=== PATIENT | female | born 1975 | race Caucasian/White ===

== ENCOUNTER 2016-10-12 09:40 | Observation (INO) | payer OTHER ==
[~2016-10-12] VITALS: Ht 147.3 cm; Wt 100.3 kg
[~2016-10-12 09:40] MED LIST: BUDE10.2 IH
[2016-10-12] MEDS ORDERED: ADENOSINE 6 MG/2 ML VIAL IV ONE ×3 (09:47→10:15)
--- NOTE | 2016-10-12 10:06 | PHYS DOC ---
Past Medical History Past Medical History: Asthma, Other Additional Past Medical Histor: SVT; cerebral palsy Past Surgical History: , Tubal ligation, Other Additional Past Surgical Histo: left leg lengthened Alcohol Use: None Drug Use: None Adult General Chief Complaint Chief Complaint: RAPID HEART RATE HPI HPI Patient is a 41 year old female who presents with cardia. She states she has a history of SVT and was diagnosed approximately 2 years ago and this morning around 8 AM felt herself go into it. She states normally she bears down and is able to control her this morning is not working. She denies any chest pain or shortness of breath she does feel light headed. She denies any current medications for SVT. She does follow with the wood pile driver operator at [facility] for this. She denies any drug use or alcohol abuse. Review of Systems Review of Systems Constitutional: Denies fever or chills, positive for lightheadedness Eyes: Denies change in visual acuity, redness, or eye pain [] HENT: Denies nasal congestion or sore throat [] Respiratory: Denies cough or shortness of breath [] Cardiovascular: No additional information not addressed in HPI [] GI: Denies abdominal pain, nausea, vomiting, bloody stools or diarrhea [] : Denies dysuria or hematuria [] Musculoskeletal: Denies back pain or joint pain [] Integument: Denies rash or skin lesions [] Neurologic: Denies headache, focal weakness or sensory changes [] Endocrine: Denies polyuria or polydipsia [] Current Medications Current Medications Current Medications Medications (Trade) Dose Ordered [facility] Start Time Stop Time Status Last Admin Dose Admin Adenosine (Adenocard) 6 mg 1X ONCE 10/12/16 10:15 10/12/16 10:16 DC 10/12/16 09:54 6 MG Adenosine 12 mg 12 mg 1X ONCE 10/12/16 10:15 10/12/16 10:16 DC 10/12/16 09:58 12 MG Metoprolol Succinate (Toprol Xl) 12.5 mg DAILY 10/13/16 09:00 UNV Sodium Chloride (Iv Sodium Chloride 0.9% 1000ml Bag) 1,000 ml @ 1,000 mls/hr Q1H 10/12/16 10:15 10/12/16 11:14 DC 10/12/16 10:28 1,000 MLS/HR Allergies Allergies Allergies Coded Allergies Type Severity Reaction Last Updated Verified No Known Drug Allergies 10/12/16 No Physical Exam Physical Exam Constitutional: Well developed, well nourished, no acute distress, non-toxic appearance. [] HENT: Normocephalic, atraumatic, bilateral external ears normal, oropharynx moist, no oral exudates, nose normal. [] Eyes: PERRLA, EOMI, conjunctiva normal, no discharge. [] Neck: Normal range of motion, no tenderness, supple, no stridor. [] Cardiovascular:Heart rate tachycardic, no murmur [] Lungs & Thorax: Bilateral breath sounds clear to auscultation [] Abdomen: Bowel sounds normal, soft, no tenderness, no masses, no pulsatile masses. [] Skin: Warm, dry, no erythema, no rash. [] Back: No tenderness, no CVA tenderness. [] Extremities: No tenderness, no cyanosis, no clubbing, ROM intact, no edema. [] Neurologic: Alert and oriented X 3, normal motor function, normal sensory function, no focal deficits noted. [] Psychologic: Affect normal, judgement normal, mood normal. [] Current Patient Data Vital Signs Vital Signs Date Time Temp Pulse Resp B/P Pulse Ox O2 Delivery O2 Flow Rate FiO2 10/12/16 12:35 82 19 133/91 96 Room Air 10/12/16 09:42 98.0 98.0 Lab Values Laboratory Tests Test 10/12/16 09:50 10/12/16 11:25 White Blood Count 10.3x10^3/uL (4.0-11.0) Red Blood Count 5.07x10^6/uL (3.50-5.40) Hemoglobin 14.3g/dL (12.0-15.5) Hematocrit 43.6% (36.0-47.0) Mean Corpuscular Volume 86fL (79-100) Mean Corpuscular Hemoglobin 28pg (25-35) Mean Corpuscular Hemoglobin Concent 33g/dL (31-37) Red Cell Distribution Width 15.0% (11.5-14.5) H Platelet Count 402x10^3/uL (140-400) H Neutrophils (%) (Auto) 69% (31-73) Lymphocytes (%) (Auto) 21% (24-48) L Monocytes (%) (Auto) 6% (0-9) Eosinophils (%) (Auto) 3% (0-3) Basophils (%) (Auto) 1% (0-3) Neutrophils # (Auto) 7.1x10^3uL (1.8-7.7) Lymphocytes # (Auto) 2.2x10^3/uL (1.0-4.8) Monocytes # (Auto) 0.7x10^3/uL (0.0-1.1) Eosinophils # (Auto) 0.4x10^3/uL (0.0-0.7) Basophils # (Auto) 0.1x10^3/uL (0.0-0.2) Sodium Level 140mmol/L (136-145) Potassium Level 3.8mmol/L (3.5-5.1) Chloride Level 104mmol/L (98-107) Carbon Dioxide Level 24mmol/L (21-32) Anion Gap 12 (6-14) Blood Urea Nitrogen 15mg/dL (7-20) Creatinine 1.1mg/dL (0.6-1.0) H Estimated GFR (Cockcroft-Gault) 55.3 Glucose Level 100mg/dL (70-99) H Calcium Level 8.7mg/dL (8.5-10.1) Magnesium Level 2.0mg/dL (1.8-2.4) Total Bilirubin 0.3mg/dL (0.2-1.0) Direct Bilirubin 0.1mg/dL (0.0-0.2) Aspartate Amino Transferase (AST) 20U/L (15-37) Alanine Aminotransferase (ALT) 25U/L (14-59) Alkaline Phosphatase 81U/L (46-116) Creatine Kinase 143U/L (26-192) Creatine Kinase MB (Mass) 2.3ng/mL (0.0-3.6) Creatine Kinase MB Relative Index 1.6% (0-4) Troponin I Quantitative < 0.017ng/mL (0.000-0.055) ZK-Fre-V-Type Natriuretic Peptide 172pg/mL (0-124) H Total Protein 8.1g/dL (6.4-8.2) Albumin 3.6g/dL (3.4-5.0) Thyroid Stimulating Hormone (TSH) 2.208uIU/mL (0.358-3.74) Urine Collection Type Unknown Urine Color Yellow Urine Clarity Clear Urine pH 7.5 Urine Specific [place] 1.010 Urine Protein Negativemg/dL (NEG-TRACE) Urine Glucose (UA) Negativemg/dL (NEG) Urine Ketones (Stick) Negativemg/dL (NEG) Urine Blood Trace (NEG) Urine Nitrite Negative (NEG) Urine Bilirubin Negative (NEG) Urine Urobilinogen Dipstick 0.2mg/dL (0.2 mg/dL) Urine Leukocyte Esterase Negative (NEG) Urine RBC Rare/HPF (0-2) Urine WBC 0/HPF (0-4) Urine Squamous Epithelial Cells Mod/LPF Urine Bacteria 0/HPF (0-FEW) Urine Hyaline Casts Occasional/HPF Urine Mucus Mod/LPF Urine Test Negative (NEG) Urine Opiates Screen Neg (NEG) Urine Methadone Screen Neg (NEG) Urine Barbiturates Neg (NEG) Urine Phencyclidine Screen Neg (NEG) Urine Amphetamine/Methamphetamine Neg (NEG) Urine Benzodiazepines Screen Neg (NEG) Urine Cocaine Screen Neg (NEG) Urine Cannabinoids Screen Neg (NEG) Urine Ethyl Alcohol Neg (NEG) Laboratory Tests 10/12/16 09:50 Laboratory Tests 10/12/16 09:50 EKG EKG Initial EKG shows heart rate of 22 bpm NSVT, ST depressions throughout the precordial leads, normal axis, Q RS 62 ms, as interpreted by me. Repeat EKG after adenosine shows sinus at 87 bpm normal axis, QRS 64 ms, with T- wave inversions noted in leads 3, no ST elevations noted, as interpreted by me. Radiology/Procedures Radiology/Procedures [facility] [address] [place] [address] IMAGING REPORT Signed PATIENT: DIEGO JUAREZ ACCOUNT: [id number] : 1975 LOCATION: ER AGE: 41 SEX: F EXAM STATUS: PRE ER ORD. PHYSICIAN: AGNES BENAVIDEZ MD REASON: chest pain PROCEDURE: PORTABLE CHEST 1V Portable chest, 10/12/2016: History: Chest pain Comparison is made to a study from 03/24/2016. The heart size and pulmonary vascularity are normal. There is minimal linear atelectasis and/or scarring in the lower chest bilaterally. No pulmonary consolidation is seen. There is no evidence of pleural fluid. IMPRESSION: Minimal linear atelectasis and/or scarring. DICTATED and SIGNED BY: CLAUDETTE GARCIA MD DATE: 10/12/16 1022 CC: AGNES BENAVIDEZ MD; MERCEDES ESCOBEDO MD ~ Impressions: SVT Course & Med Decision Making Course & Med Decision Making Pertinent Labs and Imaging studies reviewed. (See chart for details) Patient presented with an SVT. She received 6 mg adenosine and then converted on the next 12 mg. Roving Marker consult and they recommended admission to the patient's been having these occurring weekly. Patient's in stable condition at this time and agreeable to the plan. 35 minutes of critical care time was used on this patient excluding procedures. Dragon Disclaimer Dragon Disclaimer This electronic medical record was generated, in whole or in part, using a voice recognition dictation system. Departure Departure Impression: Primary Impression: SVT (supraventricular tachycardia) Disposition: ADMITTED INPATIENT Admitting Physician: Mercedes Escobedo Condition: STABLE Referrals: MERCEDES ESCOBEDO MD (PCP) AGNES BENAVIDEZ MD Oct 12, 2016 10:06
[2016-10-12 10:10] LABS: BASO # 0.1 x10^3/uL (0.0-0.2); BASO % 1 % (0-3); EOS % 3 % (0-3); HEMATOCRIT 43.6 % (36.0-47.0); HEMOGLOBIN 14.3 g/dL (12.0-15.5); LYMPH # 2.2 x10^3/uL (1.0-4.8); LYMPH % 21 % (24-48); MEAN CORPUSCULAR HEMOGLOBIN 28 pg (25-35); MEAN CORPUSCULAR HGB CONC 33 g/dL (31-37); MEAN CORPUSCULAR VOLUME 86 fL (79-100); MONO % 6 % (0-9); NEUT % 69 % (31-73); PLATELET COUNT 402 x10^3/uL (140-400); RED BLOOD COUNT 5.07 x10^6/uL (3.50-5.40); WHITE BLOOD COUNT 10.3 x10^3/uL (4.0-11.0)
[2016-10-12] MEDS ORDERED: IV NORMAL SALINE 1000ML BAG 1,000 ML IV SCH (10:15)
[2016-10-12 10:26] LABS: CALCIUM 8.7 mg/dL (8.5-10.1); CREATININE 1.1 mg/dL (0.6-1.0); GFR 55.3; POTASSIUM 3.8 mmol/L (3.5-5.1)
--- NOTE | 2016-10-12 10:26 | RAD ---
Portable chest, 10/12/2016: History: Chest pain Comparison is made to a study from 03/24/2016. The heart size and pulmonary vascularity are normal. There is minimal linear atelectasis and/or scarring in the lower chest bilaterally. No pulmonary consolidation is seen. There is no evidence of pleural fluid. IMPRESSION: Minimal linear atelectasis and/or scarring.
[2016-10-12 10:32] LABS: ALBUMIN 3.6 g/dL (3.4-5.0); DIRECT BILIRUBIN 0.1 mg/dL (0.0-0.2); TOTAL BILIRUBIN 0.3 mg/dL (0.2-1.0); TOTAL PROTEIN 8.1 g/dL (6.4-8.2)
[2016-10-12 10:41] LABS: CKMB INDEX 1.6 % (0-4); CKMB MASS 2.3 ng/mL (0.0-3.6)
[2016-10-12 11:39] LABS: BILIRUBIN,URINE NEGATIVE (NEG); GLUCOSE,URINE NEGATIVE (NEG); NITRITE,URINE NEGATIVE (NEG); PH,URINE 7.5; PROTEIN,URINE NEGATIVE (NEG-TRACE); UROBILINOGEN,URINE 0.2 mg/dL (0.2 mg/dL)
[2016-10-12 11:40] LABS: BARBITURATES NEG (NEG); BENZODIAZEPINES NEG (NEG); CANNABINOIDS NEG (NEG); COCAINE NEG (NEG); METHADONE NEG (NEG); OPIATES NEG (NEG); PHENCYCLIDINE NEG (NEG)
[2016-10-12 11:41] LABS: ETHANOL, URINE NEG (NEG)
[2016-10-12 11:42] LABS: NEG OBC UR NEG; POS OBC UR POS
[2016-10-12 11:50] LABS: BACTERIA,URINE 0 /HPF (0-FEW); RBC,URINE RARE /HPF (0-2); SQUAMOUS EPITHELIAL CELL,UR MOD /LPF; WBC,URINE 0 /HPF (0-4)
--- NOTE | 2016-10-12 12:17 | PDOC2 ---
CARDIAC CONSULT DATE OF CONSULT Date of Consult DATE: 10/12/16 TIME: 12:15 REASON FOR CONSULT Reason for Consult: SVT REFERRING PHYSICIAN Referring Physician: Carrol SOURCE Source: Chart review, Patient HISTORY OF PRESENT ILLNESS HISTORY OF PRESENT ILLNESS This is a pleasant 41 yo female admitted for complains of palpitations and heart racing and diaphoresis and dizziness. This has been happening to her weekly averaging about 10 minutes with only symptom of palpitation eventually aborted by hyperventilating and bearing down. Today at work she had multiple complains as enumerated but this was prolonged further about 30 minutes and not responsive with vagal maneuvers. She then started having left hand tingling which prompted her to proceed to ED. Denies any recent fever or chills and her asthma and anxiety are fairly controlled. Reports that she was noted initially with SVT about 2 yrs ago and was seen in . At that time she also had an event monitor. There was no mention of any ablation. She was given flecainide in the past. She currently does not take any medications except for her asthma inhalers and ranitidine. Reports that she typically drinks fluids about 0.5 to 1 liter per day with daily ingestion of 1 can of red thunder equivalent to red bull and also diet Dr. Rodríguez. Denies any tobacco but she does live with her who smokes tobacco. Denies any CAD, VTE, syncope. 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 ) Pulmonary: Asthma CENTRAL NERVOUS SYSTEM: Other (Cerebral palsy) GI: GERD Heme/Onc: No pertinent hx Hepatobiliary: No pertinent hx Psych: Anxiety Musculoskeletal: Other (Cerebral palsy; obesity) Infectious disease: No pertinent hx ENT: No pertinent hx Renal/: No pertinent hx Endocrine: Diabetes (gestational) Dermatology: No pertinent hx PAST SURGICAL HISTORY Past Surgical History: Other (achilles tendon lengthening; heart surgery as a child) FAMILY HISTORY Family History: Stroke (father), Other (nonhodkins lymphoma- father) SOCIAL HISTORY Smoke: No ALCOHOL: occassional Drugs: None Lives: with Family CURRENT MEDICATIONS CURRENT MEDICATIONS Current Medications Medications (Trade) Dose Ordered Sig/Joanne Route PRN Reason Start Time Stop Time Status Last Admin Dose Admin Adenosine 12 mg 12 mg 1X ONCE IV 10/12/16 10:15 10/12/16 10:16 DC 10/12/16 09:58 Sodium Chloride (Iv Sodium Chloride 0.9% 1000ml Bag) 1,000 ml @ 1,000 mls/hr Q1H IV 10/12/16 10:15 10/12/16 11:14 DC 10/12/16 10:28 Adenosine (Adenocard) 6 mg 1X ONCE IV 10/12/16 10:15 10/12/16 10:16 DC 10/12/16 09:54 ALLERGIES ALLERGIES: Coded Allergies: No Known Drug Allergies (Unverified , 10/12/16) ROS Review of System 14 point ROS evaluated with pertinent positives noted per HPI PHYSICAL EXAM General: Alert, Oriented X3, Cooperative, No acute distress HEENT: Atraumatic, Mucous membr. moist/pink Lungs: Clear to auscultation, Other (faint bibasilar exp wheeze. ) Heart: Regular rate, Normal S1, Normal S2, No murmurs Abdomen: Soft, No tenderness Extremities: No cyanosis, No edema Skin: No breakdown, No significant lesion Neuro: Normal speech, Sensation intact Psych/Mental Status: Mental status NL, Mood NL MUSCULOSKELETAL: Osteoarthritic changes both hands VITALS VITALS Vital Signs Date Time Temp Pulse Resp B/P Pulse Ox O2 Delivery O2 Flow Rate FiO2 10/12/16 09:42 98.0 225 14 110/77 95 Room Air 98.0 LABS Lab: Laboratory Tests Test 10/12/16 09:50 10/12/16 11:25 White Blood Count 10.3x10^3/uL (4.0-11.0) Red Blood Count 5.07x10^6/uL (3.50-5.40) Hemoglobin 14.3g/dL (12.0-15.5) Hematocrit 43.6% (36.0-47.0) Mean Corpuscular Volume 86fL (79-100) Mean Corpuscular Hemoglobin 28pg (25-35) Mean Corpuscular Hemoglobin Concent 33g/dL (31-37) Red Cell Distribution Width 15.0% (11.5-14.5) Platelet Count 402x10^3/uL (140-400) Neutrophils (%) (Auto) 69% (31-73) Lymphocytes (%) (Auto) 21% (24-48) Monocytes (%) (Auto) 6% (0-9) Eosinophils (%) (Auto) 3% (0-3) Basophils (%) (Auto) 1% (0-3) Neutrophils # (Auto) 7.1x10^3uL (1.8-7.7) Lymphocytes # (Auto) 2.2x10^3/uL (1.0-4.8) Monocytes # (Auto) 0.7x10^3/uL (0.0-1.1) Eosinophils # (Auto) 0.4x10^3/uL (0.0-0.7) Basophils # (Auto) 0.1x10^3/uL (0.0-0.2) Sodium Level 140mmol/L (136-145) Potassium Level 3.8mmol/L (3.5-5.1) Chloride Level 104mmol/L (98-107) Carbon Dioxide Level 24mmol/L (21-32) Anion Gap 12 (6-14) Blood Urea Nitrogen 15mg/dL (7-20) Creatinine 1.1mg/dL (0.6-1.0) Estimated GFR (Cockcroft-Gault) 55.3 Glucose Level 100mg/dL (70-99) Calcium Level 8.7mg/dL (8.5-10.1) Magnesium Level 2.0mg/dL (1.8-2.4) Total Bilirubin 0.3mg/dL (0.2-1.0) Direct Bilirubin 0.1mg/dL (0.0-0.2) Aspartate Amino Transf (AST/SGOT) 20U/L (15-37) Alanine Aminotransferase (ALT/SGPT) 25U/L (14-59) Alkaline Phosphatase 81U/L (46-116) Creatine Kinase 143U/L (26-192) Creatine Kinase MB (Mass) 2.3ng/mL (0.0-3.6) Creatine Kinase MB Relative Index 1.6% (0-4) Troponin I Quantitative < 0.017ng/mL (0.000-0.055) ZC-Pcm-X-Type Natriuretic Peptide 172pg/mL (0-124) Total Protein 8.1g/dL (6.4-8.2) Albumin 3.6g/dL (3.4-5.0) Thyroid Stimulating Hormone (TSH) 2.208uIU/mL (0.358-3.74) Urine Collection Type Unknown Urine Color Yellow Urine Clarity Clear Urine pH 7.5 Urine Specific [place] 1.010 Urine Protein Negativemg/dL (NEG-TRACE) Urine Glucose (UA) Negativemg/dL (NEG) Urine Ketones (Stick) Negativemg/dL (NEG) Urine Blood Trace (NEG) Urine Nitrite Negative (NEG) Urine Bilirubin Negative (NEG) Urine Urobilinogen Dipstick 0.2mg/dL (0.2 mg/dL) Urine Leukocyte Esterase Negative (NEG) Urine RBC Rare/HPF (0-2) Urine WBC 0/HPF (0-4) Urine Squamous Epithelial Cells Mod/LPF Urine Bacteria 0/HPF (0-FEW) Urine Hyaline Casts Occasional/HPF Urine Mucus Mod/LPF Urine Test Negative (NEG) Urine Opiates Screen Neg (NEG) Urine Methadone Screen Neg (NEG) Urine Barbiturates Neg (NEG) Urine Phencyclidine Screen Neg (NEG) Urine Amphetamine/Methamphetamine Neg (NEG) Urine Benzodiazepines Screen Neg (NEG) Urine Cocaine Screen Neg (NEG) Urine Cannabinoids Screen Neg (NEG) Urine Ethyl Alcohol Neg (NEG) ASSESSMENT/PLAN ASSESSMENT/PLAN 1. PSVT: Failed vagal maneuvers at home. Corrected by 2nd adenosine in ED. 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 Likely induced by inadequate po hydration with daily use of red thunder (red bull generic) with diet Dr. Rodríguez with concurrent effexor use as well. Discussed significantly with pt in regards to stopping caffeinated beverage use and adequately hydrating self. Will start on low dose toprol XL and will consider referring to EP. Obtain baseline EKG. TTE today and further recommendation per result. Will establish outpt follow up once testing is completed. 2. Hx of asthma: well controlled. on dulera and proair. 3. 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 Hx of cerebral palsy 5. Hx of anxiety: Verbalized control. takes effexor for it. Problems: NIKO STARKS APRN Oct 12, 2016 12:17
--- NOTE | 2016-10-12 13:44 | EKG ---
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
--- NOTE | 2016-10-12 13:45 | EKG ---
[facility] [address] [place] [address] Test Date: 2016-10-12 Test Time: 09:59:51 Pat Name: DIEGO JUAREZ Department: Room: Gender: F Developer Advocate: : 1975 Requested By: NIKO STARKS Order Number: [id number] Reading MD: Darius Rosenbaum Measurements Intervals [place] Rate: 87 P: 37 CT: 124 QRS: 36 QRSD: 64 T: 8 QT: 344 QTc: 414 Interpretive Statements SINUS ARRHYTHMIA Electronically Signed On 10-13-2016 13:09:53 PATHOLOGY SECRETARY by Darius Rosenbaum
--- NOTE | 2016-10-12 14:18 | CARD ---
APPROVED REPORT EXAM: Two-dimensional and M-mode echocardiogram with Doppler and color Doppler. Other Information Quality : GoodHR: 86bpm Rhythm : NSR INDICATION Arrhythmia SVT 2D DIMENSIONS RVDd2.5 (2.9-3.5cm)Left Atrium(2D)2.9 (1.6-4.0cm) IVSd0.9 (0.7-1.1cm)Aortic Root(2D)2.9 (2.0-3.7cm) LVDd4.5 (3.9-5.9cm)LVOT Diameter2.1 (1.8-2.4cm) PWd1.0 (0.7-1.1cm)LVDs3.1 (2.5-4.0cm) FS (%) 31.2 %SV55.2 ml LVEF(%)59.1 (>50%) Aortic Valve AoV Peak Lee.109.8cm/sAoV VTI22.1cm AO Peak GR.4.8mmHgLVOT Peak Lee.101.0cm/s AO Mean GR.3mmHgAVA (VMAX)3.18cm2 Mitral Valve MV E Xafwsqkw81.5cm/sMV E Peak Gr.79mmHg MV DECEL [id number] A Setnmfav35.0cm/s MV E Mean Gr.2mmHgE/A Ratio1.3 MV A [id number] Pulmonary Valve PV Peak Enkcflsw57.6cm/s Pulmonary Vein S1 Xlnecwyk99.6cm/sD2 Ncriqdmm06.8cm/s PVa [id number] LEFT VENTRICLE The left ventricle is normal size. There is normal left ventricular wall thickness. The left ventricu lar systolic function is normal and the ejection fraction is within normal range. The Ejection Fracti on is 60-65%. There is normal LV segmental wall motion. The left ventricular diastolic function and f illing is normal for age. RIGHT VENTRICLE The right ventricle is normal size. There is normal right ventricular wall thickness. The right ventr icular systolic function is normal. ATRIA The left atrium size is normal. The right atrium size is normal. The interatrial septum is intact wit h no evidence for an atrial septal defect or patent foramen ovale as noted on 2-D or Doppler imaging. AORTIC VALVE The aortic valve is normal in structure and function. Doppler and Color Flow revealed no significant aortic regurgitation. There is no significant aortic valvular stenosis. MITRAL VALVE The mitral valve is normal in structure and function. There is no evidence of mitral valve prolapse. There is no mitral valve stenosis. Doppler and Color Flow revealed mild mitral regurgitation. TRICUSPID VALVE The tricuspid valve is normal in structure and function. Doppler and Color Flow revealed no tricuspid valve regurgitation noted. PULMONIC VALVE The pulmonary valve is normal in structure and function. Doppler and Color Flow revealed no pulmonic valvular regurgitation. GREAT VESSELS The aortic root is normal in size. The ascending aorta is normal in size. The pulmonary artery is nor mal. The IVC is normal in size and collapses >50% with inspiration. PERICARDIAL EFFUSION There is no evidence of significant pericardial effusion. Critical Notification Critical Value: No <Conclusion> The left ventricle is normal size. The left ventricular systolic function is normal and the ejection fraction is within normal range. The Ejection Fraction is 60-65%. There is no significant aortic valvular stenosis. Doppler and Color Flow revealed no significant aortic regurgitation. Doppler and Color Flow revealed mild mitral regurgitation. Doppler and Color Flow revealed no tricuspid valve regurgitation noted. There is no evidence of significant pericardial effusion.
--- NOTE | 2016-10-12 14:30 | ACF ---
Admission Forms Criteria SUPRAVENTRICULAR ARRHYTHMIAS Clinical Indications for Admission to Inpatient Care (Place 'X' for any and all applicable criteria): Admission is indicated by ANY ONE of the following (1)(2): [X]I. Arrhythmia causing significant symptoms or findings as indicated by ANY ONE of the following: [ ]a) Chest pain [ ]b) Myocardial ischemia [ ]c) Altered mental status [X]d) Dizziness, weakness, or light-headedness [ ]e) Dyspnea or hypoxemia [ ]f) Heart failure (eg, pulmonary edema)(11) [ ]II. Initiation of antiarrhythmic drug therapy is needed in patient at high risk of adverse events as indicated by ANY ONE of the following: [ ]a) Significant structural heart disease (eg, aortic stenosis, reduced ejection fraction, cardiomyopathy, congenital heart disease) [ ]b) Underlying sinus node or atrioventricular conduction disturbances [ ]c) Prolonged QT interval [ ]d) Need for treatment with antiarrhythmic that have significant proarrhythmic potential ( procainamide) [ ]e) Patient whose sinus rhythm has not been observed on ECG [X]III. Inpatient admission required rather than observation care because of ANY ONE of the following: [ ]a) Syncope [ ]b) Patient has automatic implanted cardioverter-defibrillator that is repeatedly firing, malfunctioning, or in need of immediate adjustment of settings beyond scope of ambulatory or observation care. [ ]c) Hemodynamic instability that is severe or persistent [ ]d) Unstable cardiac conduction defects indicated by ANY ONE of the following(19)(20)(21): [ ]a) Type II second-degree atrioventricular block [ ]b) Third-degree atrioventricular block [ ]C) New-onset left bundle branch block with suspected myocardial ischemia [ ]e) Severe electrolyte abnormalities requiring inpatient care [X]f) Continuous intravenous infusion of anticoagulation, platelet inhibitor, vasoactive, or antiarrhythmic medication(14) [ ]g) Pulmonary artery catheter monitoring [ ]h) Repeat cardioversion necessary [ ]i) Other condition, treatment or monitoring requiring inpatient admission [ ]IV. Underlying medical condition that necessitates inpatient care (eg, thyrotoxicosis, severe acidosis) Extended stay beyond goal length of stay may be needed for(1)(17)(18): [ ]a) Persistent hemodynamic instability or continued severe arrhythmia [ ]b) Continued monitoring during initiation of certain medications (eg, some antiarrhythmics)(17)(19) [ ]c) Precipitating cause requires ongoing inpatient care (eg, severe electrolyte abnormality, systemic infection, acidosis) [ ]d) Unstable comorbidities The original [facility] content created by [facility] has been revised. The portions of the content which have been revised are identified through the use of italic text or in bold, and [facility] has neither reviewed nor approved the modified material. All other unmodified content is copyright [facility]. Please see references footnoted in the original [facility] edition 2016 Admission Criteria Met?: Yes PEACE CARL Oct 12, 2016 14:30
[2016-10-12] MEDS: METOPROLOL SUCC 24HR ER 25 MG TAB.ER.24H. PO SCH (14:45)
[2016-10-12 16:00] VITALS: BP 142/87
--- NOTE | 2016-10-12 18:11 | PDOC ---
Provider Note Provider Note See admission H&P dictation # Impression: 1. SVT: MERCEDES ESCOBEDO MD Oct 12, 2016 18:11
[2016-10-12] MEDS ORDERED: ZOLPIDEM 5 MG TABLET. PO PRN (18:15)
[2016-10-12] MEDS ORDERED: VENL75CA PO (19:30)
[2016-10-12] MEDS ORDERED: RANI150T6 PO (19:31)
[2016-10-12] MEDS ORDERED: MOME13HF IH (19:34)
[2016-10-12] MEDS ORDERED: BUDESONIDE 0.5 MG/2 ML NEBU NEB SCH (20:00)
[2016-10-12] MEDS ORDERED: SMZ/TMP 800/160MG TABLET. PO ONE (20:15)
[2016-10-12 20:25] VITALS: BP 121/85
[2016-10-12] MEDS ORDERED: NON FORMULARY ITEM (Mometasone/Formoterol (Dulera 200 Mcg/5 Mcg Inhaler) 2 PUFF) IH SCH (21:00)
[2016-10-12] MEDS: FAMOTIDINE 20 MG TABLET. PO SCH (21:53)
[2016-10-13 03:25] VITALS: BP 146/101
[2016-10-13 05:22] LABS: BASO # 0.1 x10^3/uL (0.0-0.2); BASO % 1 % (0-3); EOS % 5 % (0-3); HEMATOCRIT 40.9 % (36.0-47.0); LYMPH # 1.5 x10^3/uL (1.0-4.8); LYMPH % 26 % (24-48); MEAN CORPUSCULAR HEMOGLOBIN 28 pg (25-35); MEAN CORPUSCULAR HGB CONC 32 g/dL (31-37); MEAN CORPUSCULAR VOLUME 89 fL (79-100); MONO % 7 % (0-9); NEUT % 61 % (31-73); PLATELET COUNT 289 x10^3/uL (140-400); RED BLOOD COUNT 4.58 x10^6/uL (3.50-5.40); RED CELL DISTRIBUTION WIDTH 15.5 % (11.5-14.5); WHITE BLOOD COUNT 5.7 x10^3/uL (4.0-11.0)
[2016-10-13 05:38] LABS: ALBUMIN/GLOBULIN RATIO 0.9 (1.0-1.7); CALCIUM 8.1 mg/dL (8.5-10.1); CREATININE 0.8 mg/dL (0.6-1.0); GFR 79.9; POTASSIUM 4.8 mmol/L (3.5-5.1); TOTAL BILIRUBIN 0.2 mg/dL (0.2-1.0); TOTAL PROTEIN 6.4 g/dL (6.4-8.2)
--- NOTE | 2016-10-13 06:38 | EKG ---
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
[2016-10-13] MEDS: ALBUTEROL SULFATE 2.5 MG/3 ML NEBU. NEB SCH ×3 (07:29→15:00)
[2016-10-13 07:59] VITALS: BP 142/91
[2016-10-13] MEDS ORDERED: VENLAFAXINE XR 37.5 MG CAP.ER.24H. PO SCH (09:00)
[2016-10-13] MEDS: FAMOTIDINE 20 MG TABLET. PO SCH (09:21)
[2016-10-13] MEDS: METOPROLOL SUCC 24HR ER 25 MG TAB.ER.24H. PO SCH (09:21)
--- NOTE | 2016-10-13 09:50 | PDOC ---
NIKO STARKS PUBLIC FINANCE SPECIALIST 10/13/16 0950: CARDIO Progress Notes Date and Time Date of Service 10/13/2016 Time of Evaluation 0900 Subjective Subjective: No Chest Pain, No shortness of breath, No Palpitations, No Dizziness Vitals Vitals Vital Signs Date Time Temp Pulse Resp B/P Pulse Ox O2 Delivery O2 Flow Rate FiO2 10/13/16 09:21 76 142/91 10/13/16 08:00 Room Air 10/13/16 07:59 18 100 10/13/16 03:25 97.7 97.7 Weight Weight [ ] Input and Output Intake and Output Intake and Output 10/13/16 07:00 Intake Total 2190 ml Balance 2190 ml Intake Oral 1190 ml IV Total 1000 ml # Voids 2 Laboratory Labs Laboratory Tests Test 10/12/16 09:50 10/12/16 11:25 10/12/16 20:15 10/13/16 05:10 White Blood Count 10.3x10^3/uL (4.0-11.0) 5.7x10^3/uL (4.0-11.0) Red Blood Count 5.07x10^6/uL (3.50-5.40) 4.58x10^6/uL (3.50-5.40) Hemoglobin 14.3g/dL (12.0-15.5) 13.0g/dL (12.0-15.5) Hematocrit 43.6% (36.0-47.0) 40.9% (36.0-47.0) Mean Corpuscular Volume 86fL (79-100) 89fL (79-100) Mean Corpuscular Hemoglobin 28pg (25-35) 28pg (25-35) Mean Corpuscular Hemoglobin Concent 33g/dL (31-37) 32g/dL (31-37) Red Cell Distribution Width 15.0% (11.5-14.5) 15.5% (11.5-14.5) Platelet Count 402x10^3/uL (140-400) 289x10^3/uL (140-400) Neutrophils (%) (Auto) 69% (31-73) 61% (31-73) Lymphocytes (%) (Auto) 21% (24-48) 26% (24-48) Monocytes (%) (Auto) 6% (0-9) 7% (0-9) Eosinophils (%) (Auto) 3% (0-3) 5% (0-3) Basophils (%) (Auto) 1% (0-3) 1% (0-3) Neutrophils # (Auto) 7.1x10^3uL (1.8-7.7) 3.5x10^3uL (1.8-7.7) Lymphocytes # (Auto) 2.2x10^3/uL (1.0-4.8) 1.5x10^3/uL (1.0-4.8) Monocytes # (Auto) 0.7x10^3/uL (0.0-1.1) 0.4x10^3/uL (0.0-1.1) Eosinophils # (Auto) 0.4x10^3/uL (0.0-0.7) 0.3x10^3/uL (0.0-0.7) Basophils # (Auto) 0.1x10^3/uL (0.0-0.2) 0.1x10^3/uL (0.0-0.2) Sodium Level 140mmol/L (136-145) 144mmol/L (136-145) Potassium Level 3.8mmol/L (3.5-5.1) 4.8mmol/L (3.5-5.1) Chloride Level 104mmol/L (98-107) 109mmol/L (98-107) Carbon Dioxide Level 24mmol/L (21-32) 27mmol/L (21-32) Anion Gap 12 (6-14) 8 (6-14) Blood Urea Nitrogen 15mg/dL (7-20) 15mg/dL (7-20) Creatinine 1.1mg/dL (0.6-1.0) 0.8mg/dL (0.6-1.0) Estimated GFR (Cockcroft-Gault) 55.3 79.9 Glucose Level 100mg/dL (70-99) 99mg/dL (70-99) Calcium Level 8.7mg/dL (8.5-10.1) 8.1mg/dL (8.5-10.1) Magnesium Level 2.0mg/dL (1.8-2.4) Total Bilirubin 0.3mg/dL (0.2-1.0) 0.2mg/dL (0.2-1.0) Direct Bilirubin 0.1mg/dL (0.0-0.2) Aspartate Amino Transf (AST/SGOT) 20U/L (15-37) 22U/L (15-37) Alanine Aminotransferase (ALT/SGPT) 25U/L (14-59) 21U/L (14-59) Alkaline Phosphatase 81U/L (46-116) 69U/L (46-116) Creatine Kinase 143U/L (26-192) Creatine Kinase MB (Mass) 2.3ng/mL (0.0-3.6) Creatine Kinase MB Relative Index 1.6% (0-4) Troponin I Quantitative < 0.017ng/mL (0.000-0.055) 0.406ng/mL (0.000-0.055) NI-Ubi-X-Type Natriuretic Peptide 172pg/mL (0-124) Total Protein 8.1g/dL (6.4-8.2) 6.4g/dL (6.4-8.2) Albumin 3.6g/dL (3.4-5.0) 3.0g/dL (3.4-5.0) Thyroid Stimulating Hormone (TSH) 2.208uIU/mL (0.358-3.74) Urine Collection Type Unknown Urine Color Yellow Urine Clarity Clear Urine pH 7.5 Urine Specific [place] 1.010 Urine Protein Negativemg/dL (NEG-TRACE) Urine Glucose (UA) Negativemg/dL (NEG) Urine Ketones (Stick) Negativemg/dL (NEG) Urine Blood Trace (NEG) Urine Nitrite Negative (NEG) Urine Bilirubin Negative (NEG) Urine Urobilinogen Dipstick 0.2mg/dL (0.2 mg/dL) Urine Leukocyte Esterase Negative (NEG) Urine RBC Rare/HPF (0-2) Urine WBC 0/HPF (0-4) Urine Squamous Epithelial Cells Mod/LPF Urine Bacteria 0/HPF (0-FEW) Urine Hyaline Casts Occasional/HPF Urine Mucus Mod/LPF Urine Test Negative (NEG) Urine Opiates Screen Neg (NEG) Urine Methadone Screen Neg (NEG) Urine Barbiturates Neg (NEG) Urine Phencyclidine Screen Neg (NEG) Urine Amphetamine/Methamphetamine Neg (NEG) Urine Benzodiazepines Screen Neg (NEG) Urine Cocaine Screen Neg (NEG) Urine Cannabinoids Screen Neg (NEG) Urine Ethyl Alcohol Neg (NEG) BUN/Creatinine Ratio 19 (6-20) Albumin/Globulin Ratio 0.9 (1.0-1.7) Physical Exam HEENT: Neck Supple W Full Motion Chest: Symmetric LUNGS: Clear to Auscultation Heart: S1S2, RRR Abdomen: Soft N/T Extremities: No Edema, No Calf Tenderness Neurology: alert, oriented, follow commands Assessment Assessment 1. PSVT: With past hx. 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 Likely induced by inadequate po hydration with daily use of red thunder (red bull generic) with diet Dr. Rodríguez with concurrent effexor use as well. TTE noted with normalcy. EKG SR without any acute changes post conversion. No further recurrence overnight. No symptoms and CP free overnight. Discussed with primary neurosurgical physician assistant. Troponin noted at 0.4 and this is demand mediated due to sustained SVT yesterday. Continue with low dose toprol. Encourage avoidance of caffeinated beverages for now. Pt is to call our office for any further episodes. Continue to encourage vagal maneuvers. If persistent after lifestyle modification then will consider EP referral. Follow up in our office on 11/10/2016 at 1315. May DC per cardiac perspective. ' 2. Hx of asthma: well controlled. on dulera and proair. 3. 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 Hx of cerebral palsy 5. Hx of anxiety: Verbalized control. takes effexor for it. DEVON CRUZ MD 10/13/16 1526: CARDIO Progress Notes Assessment Assessment Patient seen and examined. Agree with TOP LIFT SCOURER's assessment and plan. No further arrhythmias noted on telemetry. Continue beta blockers. Patient was advised to refrain from caffeinated drinks. Follow-up with Dr. Blanco as scheduled. NIKO STARKS APRN Oct 13, 2016 09:50 DEVON CRUZ MD Oct 13, 2016 15:26
[2016-10-13 10:42] VITALS: BP 135/83
--- NOTE | 2016-10-13 13:54 | DISCH ---
DISCHARGE INSTRUCTIONS Condition on Discharge Condition on Discharge: Stable Activity After Discharge Activity Instructions for Disc: Activity as tolerated Diet after Discharge Additional Diet Restrictions: Limit caffeine intake Contacting the DRGeraldine after DC Call your doctor for: If your condition worsens Follow-Up Follow up with: Dr Escobedo in 1-2 weeks Follow Up With: Cardiology per their rec MERCEDES ESCOBEDO MD Oct 13, 2016 13:54
[2016-10-13] MEDS ORDERED: METO25TA9 PO (13:56)
[2016-10-13 14:49] VITALS: BP 135/71
--- NOTE | 2016-10-13 14:55 | PDOC ---
Provider Note Provider Note See discharge summary dictation MERCEDES ESCOBEDO MD Oct 13, 2016 14:55
== END 2016-10-13 15:45 | disposition home or self-care (01) ==
LOC: ER 09:40 → 2 SOUTH 13:45
PROVIDERS: ADMIT Family Medicine; ATTEND Family Medicine
DX: I47.1 Supraventricular tachycardia (principal); J45.909 Unspecified asthma, uncomplicated; G80.9 Cerebral palsy, unspecified; R00.0 Tachycardia, unspecified; F41.9 Anxiety disorder, unspecified; K21.9 Gastro-esophageal reflux disease without esophagitis; Z80.7 Family history of other malignant neoplasms of lymphoid, hematopoietic and related tissues; Z82.3 Family history of stroke
CPT/HCPCS: 36415; 71010; 80048; 80053; 80076; 81001; 81025; 82550; 82553; 83735; 83880; 84443; 84484; 85027; 93005; 93306; 94250; 94640; 96361; 96374; 96376; G0378; G0379; G0481; J0153; J7030; 99285-25

== ENCOUNTER 2016-11-01 18:35 | Emergency (ER) | payer OTHER ==
[~2016-11-01] VITALS: Ht 149.9 cm; Wt 100.4 kg
[~2016-11-01 18:35] MED LIST changes: +METO25TA9 PO; +MOME13HF IH; +RANI150T6 PO; +VENL75CA PO
[2016-11-01 19:31] LABS: POTASSIUM ISTAT 3.3 mmol/L (3.5-5.0)
--- NOTE | 2016-11-01 19:37 | PHYS DOC ---
Past Medical History Past Medical History: Asthma, Other Additional Past Medical Histor: pSVT; cerebral palsy Past Surgical History: , Tubal ligation, Other Additional Past Surgical Histo: left leg lengthened Alcohol Use: Occasionally Drug Use: None Adult General Chief Complaint Chief Complaint: RAPID HEART RATE HPI HPI Patient is a 41 year old female who presents with palpitations and tachycardia 8 times in the past 3 days. States this is SVT and she is usually able to vagal out. She has symptoms for the past 45 minutes. She took extra dose of toprol last night after discussion with Dr. Escobedo. She continues caffeine abstinence. Her only other symptom is fatigue. She denies chest pain, dyspnea, fever or chills, nausea or vomiting, diarrhea, dysuria. She denies taking over- the-counter medications. Review of Systems Review of Systems Constitutional: Denies fever or chills [] Eyes: Denies change in visual acuity, redness, or eye pain [] HENT: Denies nasal congestion or sore throat [] Respiratory: Denies cough or shortness of breath [] Cardiovascular: No additional information not addressed in HPI [] GI: Denies abdominal pain, nausea, vomiting, bloody stools or diarrhea [] : Denies dysuria or hematuria [] Musculoskeletal: Denies back pain or joint pain [] Integument: Denies rash or skin lesions [] Neurologic: Denies headache, focal weakness or sensory changes [] Endocrine: Denies polyuria or polydipsia [] Current Medications Current Medications Current Medications Medications (Trade) Dose Ordered Sig/Joanne Start Time Stop Time Status Last Admin Dose Admin Potassium Chloride (Klor-Con) 40 meq 1X ONCE 11/01/16 19:45 11/01/16 19:46 DC 11/01/16 19:52 40 MEQ Allergies Allergies Allergies Coded Allergies Type Severity Reaction Last Updated Verified No Known Drug Allergies 10/12/16 No Physical Exam Physical Exam Constitutional: Well developed, well nourished, no acute distress, non-toxic appearance. [] HENT: Normocephalic, atraumatic, bilateral external ears normal, oropharynx moist, nose normal. [] Eyes: PERRLA, EOMI. [] Neck: Normal range of motion, supple. [] Cardiovascular:Heart rate regular rhythm [] Lungs & Thorax: Bilateral breath sounds clear to auscultation [] Abdomen: Bowel sounds normal, soft, no tenderness. [] Skin: Warm, dry, no erythema, no rash. [] Back: Normal ROM. [] Extremities: ROM intact, no edema. [] Neurologic: Alert and oriented X 3, normal motor function, normal sensory function, no focal deficits noted. [] Psychologic: Affect normal, judgement normal, mood normal. [] Current Patient Data Vital Signs Vital Signs Date Time Temp Pulse Resp B/P Pulse Ox O2 Delivery O2 Flow Rate FiO2 11/01/16 19:49 94 118/78 97 Room Air 11/01/16 18:40 98.0 18 98.0 Lab Values Laboratory Tests Test 11/01/16 19:00 POC Hemoglobin 15.6g/dL (12-15) H POC Hematocrit 46% (36-40) H POC Sodium 142mmol/L (135-145) POC Potassium 3.3mmol/L (3.5-5.0) L POC Chloride 107mmol/L (98-110) POC Total CO2 21mmol/L (23-32) L Anion Gap 18mmol/L (6-14) H POC Blood Urea Nitrogen 10mg/dL (8-26) POC Creatinine 0.8mg/dL (0.5-1.4) Glucose Level 111mg/dL (70-99) H POC Ionized Calcium (Gomez) 1.08mmol/L (1.13-1.32) L Laboratory Tests 11/01/16 19:00 EKG EKG EKG as interpreted by me as normal sinus rhythm, rate 91, no ST-T changes, normal intervals, no ectopy Course & Med Decision Making Course & Med Decision Making Pertinent Labs and Imaging studies reviewed. (See chart for details) Workup is unremarkable other than mild hypokalemia. She has no further episodes of SVT while in the emergency department. Discussed case with Dr. Rosenbaum, cardiology, who recommends continuing Toprol-XL at 50 mg and follow-up with cardiology clinic within 2 days. Return precautions given. Patient understands and agrees with plan. Dragon Disclaimer Dragon Disclaimer This electronic medical record was generated, in whole or in part, using a voice recognition dictation system. Departure Departure Impression: Primary Impression: SVT (supraventricular tachycardia) Additional Impression: Hypokalemia Disposition: HOME, SELF-CARE Condition: STABLE Referrals: MERCEDES ESCOBEDO MD (PCP) Patient Instructions: Supraventricular Tachycardia, [id number] Additional Instructions: Continue 50 mg of metoprolol. Call cardiology clinic to follow-up within 3 days. Return for any concerns. Problem Qualifiers Biju CAVAZOS MD Nov 01, 2016 19:37
[2016-11-01] MEDS ORDERED: POTASSIUM CHLORIDE 20 MEQ TABLET.ER. PO ONE (19:45)
[2016-11-01 19:49] VITALS: BP 118/78
--- NOTE | 2016-11-02 06:48 | EKG ---
[facility] [address] [place] [address] Test Date: 2016-11-01 Test Time: 18:42:17 Pat Name: DIEGO JUAREZ Department: Room: Gender: F Business Development Coordinator: : 1975 Requested By: Biju CAVAZOS Order Number: [id number] Reading MD: Measurements Intervals [place] Rate: 91 P: 26 GA: 116 QRS: 34 QRSD: 66 T: 22 QT: 352 QTc: 435 Interpretive Statements SINUS RHYTHM QRS(T) CONTOUR ABNORMALITY CONSIDER ANTEROLATERAL MYOCARDIAL DAMAGE POSSIBLY ABNORMAL ECG RI6.01 No previous ECG available for comparison
== END 2016-11-01 19:56 | disposition home or self-care (01) ==
LOC: ER 18:35
DX: I47.1 Supraventricular tachycardia (principal); E87.6 Hypokalemia; J45.909 Unspecified asthma, uncomplicated; G80.9 Cerebral palsy, unspecified; Z98.51 Tubal ligation status; Z98.890 Other specified postprocedural states
CPT/HCPCS: 80047; 93005; 99284-25

== ENCOUNTER → 2016-11-25 | Outpatient (CLI) | payer OTHER ==
[2016-11-01 19:49] VITALS: BP 118/78
--- NOTE | 2016-11-27 23:15 | SLEEP ---
DATE OF STUDY: 11/25/2016 HOME SLEEP STUDY ATTENDING PHYSICIAN: Mercedes Flannery MD The patient is 41 years old who weighs 318 pounds and is 58 inches tall with a BMI of 66. Home sleep study was performed by [facility]. The total recording time was 396 minutes. During the night study, the patient had no central apneas. There were no mixed apneas. There were 30 obstructive apneas and 31 hypopneas. The patient's apnea-hypopnea index was 9.2 per hour. It should be noted that the patient removed the flow sensor from the nose for 2 hours. At that time, desaturations were noted, indicating that there were several respiratory events, which were not recorded. The patient's actual sleep apnea severity could be more. Nocturnal oximetry study revealed an average oxygen saturation of 92% with the lowest of 67%. 35 minutes were spent in oxygen saturation of less than 90%. Mean heart rate was 75 beats per minute. IMPRESSION: 1. Mild sleep apnea-hypopnea syndrome with an apnea-hypopnea index of 9 per hour. However, it should be noted that the patient removed the flow sensor from the nose for 2 hours and at that time, desaturations were noted and the patient may have more severe sleep apnea, which may have been missed on this night of the study. 2. Nocturnal hypoxia secondary to obstructive sleep apnea. RECOMMENDATIONS: 1. The patient is clinically symptomatic. She should return to the sleep lab for in-lab titration. 2. Alternate treatment option includes use of an oral appliance as recommended by the dentist. 3. Weight loss is strongly advised. 4. Avoid RN NAVIGATOR depressants. 5. Caution regarding driving until symptoms of sleep apnea resolved with the above recommendations. SEKOU GORDON MD DR: YADIRA/kinza JOB#: [id number] / [id number] MERCEDES Farah MD MTDD
== END | disposition home or self-care (01) ==
LOC: RT 06:12
PROVIDERS: ATTEND Family Medicine
DX: R53.82 Chronic fatigue, unspecified (principal)
CPT/HCPCS: G0399

== ENCOUNTER → 2019-01-27 | Outpatient (CLI) | payer OTHER ==
[2017-08-22 14:44] VITALS: BP 106/76
[~2019-01-27] MED LIST changes: +METO-239 PO; -METO25TA9 PO; +RANI-376 PO; -RANI150T6 PO
--- NOTE | 2019-01-27 16:44 | KCIC ---
BILATERAL SCREENING MAMMOGRAM, 3-D History: Routine screening. Comparison: Bilateral mammogram 10/11/2014. Technique: MLO and CC digital tomosynthesis (3D) images obtained. Radiologist reviewed these images on dedicated workstation. Findings: Breast Tissue Density B : There are scattered areas of fibroglandular density. There is a small asymmetry in the upper inner right breast at mid depth, CC slice 54 and probable correlate on MLO slice 64. There is an asymmetry in the outer right breast just lateral to the nipple line at mid depth. The asymmetry does not completely resolve on the tomosynthesis images. There is a possible correlate on MLO slice 53. There are no dominant masses, suspicious microcalcifications, or architectural distortion. IMPRESSION: There are 2 small asymmetries in the mid right breast, one inner and one outer. Recommend further evaluation with spot compression CC and MLO tomosynthesis digital views. If asymmetries persist ultrasound is suggested. BI-RADS Category 0: Incomplete: Need additional imaging evaluation. The images were reviewed with computer-aided detection. Patient information is entered into reminder system with a target due date for the next screening mammogram. Mammography is the most sensitive method for finding small breast cancers, but it does not detect them all and is not a substitute for careful clinical examination. A negative mammogram does not negate a clinically suspicious finding and should not result in delay in biopsying a clinically suspicious abnormality. "Our facility is accredited by the [employer] Mammography Program." Electronically signed by: Geovany Irvin MD (01/27/2019 4:41 PM) [id number]
== END | disposition home or self-care (01) ==
LOC: KCIC MAMMO 12:42
PROVIDERS: ATTEND Family Medicine
DX: Z12.31 Encounter for screening mammogram for malignant neoplasm of breast (principal); N64.89 Other specified disorders of breast
CPT/HCPCS: 77063; 77067